=== PATIENT | male | born 1985 ===

== ENCOUNTER 2020-03-24 16:22 | Outpatient (REF) | payer OTHER, SELFPAY ==
[2020-03-24 17:25] LABS: Alanine Aminotransferase 16 U/L (0-40); Albumin Level 4.9 g/dL (3.5-5.0); Alkaline Phosphatase 79 U/L (39-117); Anion Gap 15 (12-20); Aspartate Amino Transferase 25 U/L (5-37); Bilirubin Direct 0.5 mg/dL (0.0-0.5); Bilirubin Total 1.3 mg/dL (0.0-1.0); Blood Urea Nitrogen 12 mg/dL (9-16); Calcium 9.5 mg/dL (8.4-10.2); Carbon Dioxide 25 mmol/L (22-29); Chloride 103 mmol/L (96-108); Estimated Glomerular Filt Rate > 60; Glucose Random 96 mg/dL (60-115); Potassium 4.1 mmol/l (3.3-5.1); Sodium 139 mmol/L (135-145); Total Protein 7.7 g/dL (6.5-8.0)
[2020-03-24 18:03] LABS: Erythrocyte Sedimentation Rate 1 MM/HR (0-15)
== END 2020-03-24 16:23 | disposition home or self-care (01) ==
LOC: HO.LAB 16:22
PROVIDERS: PCP Internal Medicine; Visit Provider Psychiatry & Neurology Neurology
DX: R42 Dizziness and giddiness (principal)
CPT/HCPCS: 36415; 80048; 80076; 85652

== ENCOUNTER 2021-03-29 07:51 | Outpatient (REF) | payer OTHER, SELFPAY ==
[2021-03-29 09:07] LABS: Binax Internal Control QC Valid; Binax Now Covid-19 Ag Negative (Negative)
== END 2021-03-29 07:52 | disposition home or self-care (01) ==
LOC: HO.LAB 07:51
PROVIDERS: Visit Provider Internal Medicine
DX: Z20.822 Contact with and (suspected) exposure to COVID-19 (principal)
CPT/HCPCS: C9803

== ENCOUNTER 2021-05-17 10:31 | Emergency (ER) | payer OTHER, SELFPAY ==
--- NOTE | 2021-05-17 | ECG_ITS ---
Test Reason : CHEST PAIN Blood Pressure : / mmHG Vent. Rate : 076 BPM Atrial Rate : 076 BPM P-R Int : 156 ms QRS Dur : 086 ms QT Int : 360 ms P-R-T Axes : 054 038 014 degrees QTc Int : 405 ms Normal sinus rhythm Normal ECG When compared with ECG of 03-AUG-2016 13:06, No significant change was found Referred By: Kamila Anguiano Electronically Signed By:[place]
--- NOTE | ~2021-05-17 | XR_ITS ---
EXAMINATION: XR CHEST CLINICAL INFORMATION: Chest pain COMPARISON: Previous chest x-ray April 2017 TECHNIQUE: Frontal view of the chest was obtained. FINDINGS: The cardiac and mediastinal contours are normal. The lungs are clear. There is no pleural effusion or pneumothorax. There may be old trauma to the right anterior fifth and sixth ribs. No acute bone abnormality. XR/XR chest 1V IMPRESSION: No evidence for acute disease in the chest.
--- NOTE | 2021-05-17 10:38 | ED_ITS ---
HPI - Psych General Chief Complaint: Chest Pain Stated Complaint: SI,SECTION 12 PER EMS Time Seen by Provider: 05/17/21 10:37 Source: patient Mode of arrival: EMS Limitations: no limitations Related Data Allergies Allergy/AdvReac Type Severity Reaction Status Date / Time bee pollen [BEE STINGS] Allergy Unknown SWELLING Unverified 12/04/19 15:34 PMF Past Medical History Medical History (Updated 05/17/21 @ 10:41 by Adina Kincaid) No known health problems Social History Social History Use of substances other than those prescribed or required for medical reasons: Yes Substance Use Type: Marijuana Substance Use Frequency: Daily Physical Exam Vital Signs: Vital Signs: Last Vital Signs Temp 98.4 F 05/17/21 10:39 Pulse 73 05/17/21 10:39 Resp 16 05/17/21 10:39 BP 123/78 05/17/21 10:39 Pulse Ox 97 05/17/21 10:39 BMI result Body Mass Index 30.9 MDM - Psych ECG Data Attestation: I personally reviewed and interpreted this ECG as follows: ECG interpretation date: 05/17/21 ECG interpretation time: 10:51 Interpretation: Rate: 76 Rhythm: NSR [place]: normal Normal P waves. Normal HELEN. Normal QRS complex. ST T wave : artifact noted no HOWARD but artifact sen qTC: normal prior studies: no acute ischemia The study has been interpreted contemporaneously by me. .
[2021-05-17 10:39] VITALS: BP 123/78; PULSE 73; RESP 16; TEMP 36.9; O2SAT 97; BMI 30.9
[2021-05-17 10:51] VITALS: BP 123/78; PULSE 73; RESP 16; O2SAT 97
--- NOTE | 2021-05-17 10:57 | ED.CHESTPAIN ---
HPI - Chest Pain General Chief Complaint: Chest Pain Stated Complaint: SI,SECTION 12 PER EMS Time Seen by Provider: 05/17/21 10:37 Source: patient Mode of arrival: EMS Limitations: no limitations History of Present Illness MD complaint: chest pain Onset (ago): day(s) (today around ) Timing of current episode: constant Prior episodes: Yes Onset: other (smoking THC) Pain location: left chest and right chest Pain radiation: none Severity: moderate Quality: aching Relieving factors: nothing Exacerbating factors: other (coughing) Context: other (started after smoking his usual THC this AM around ) Associated symptoms: cough Treatment prior to arrival: aspirin and other (also used his pump this AM ) Related Data Previous Rx's Medication Instructions Recorded cyclobenzaprine 10 mg tablet 10 mg PO TID PRN #14 tab 05/17/21 Allergies Allergy/AdvReac Type Severity Reaction Status Date / Time bee pollen [BEE STINGS] Allergy Unknown SWELLING Unverified 12/04/19 15:34 Review of Systems Review of Systems: Constitutional : No Weight loss, No Fever, No Chills ENT/Mouth : No sore throat, No Rhinorrhea Eyes: No Eye Pain, No Swelling Cardiovascular : pos Chest Pain, no SOB, no Dyspnea on Exertion, No Orthopnea, No Edema, No Palpitations Respiratory : pos Cough, No Sputum Gastrointestinal : no Nausea, No Vomiting, No Diarrhea, No abdominal Pain, No Hematochezia, No Melena Genitourinary : No Dysuria, No Urinary Frequency Musculoskeletal : No joint pain, No Myalgias, No Joint Swelling Skin : No Skin Lesions, No rash Neuro : No Weakness, No Numbness, No Dizziness, No Headache Psych : No Anxiety/Panic, No Depression Heme/Lymph: No Bruising, No Lymphadenopathy Endocrine : No Polyuria, No Polydipsia All other systems reviewed and are negative PMFSH Past Medical History Attestation statement: The following information was validated with the patient. Medical History Asthma Social History Social History Use of substances other than those prescribed or required for medical reasons: Yes Substance Use Type: Marijuana Substance Use Frequency: Daily Advance Directives: No Advance Directives Information Provided: No Physical Exam Vital Signs: Vital Signs: Last Vital Signs Temp 98.4 F 05/17/21 10:39 Pulse 83 05/17/21 11:18 Resp 16 05/17/21 11:18 BP 123/78 05/17/21 10:51 Pulse Ox 97 05/17/21 10:51 BMI result Body Mass Index 30.9 Appearance: Alert. Oriented X3. No acute distress. Eyes: Pupils equal, round and reactive to light. ENT: Pharynx normal. Neck: Normal inspection. Neck supple. CVS: Normal heart rate and rhythm. Pulses normal. Respiratory: No respiratory distress. Breath sounds slight wheeze R lung but otherwise clear Abdomen: Soft and non-tender. Skin: Skin warm and dry. Normal skin color. Normal skin turgor. Extremities: No lower extremity edema. No calf ttp Neuro: Oriented X 3. No motor deficit. No sensory deficit. Course Course Course Narrative: nonischemic EKG trop negative at 5 hr lexa no ACS risk factors at this time can be DC feels better MDM - Chest Pain MDM Narrative Medical decision making narrative: 36 yo male with hx of asthma has pump at home, smokes THC daily here with c/o chest pain and cough since smoking this AM - states it's the same weed he's been using all week. At this time no hypoxia/tachycardia/signs of DVT to suggest PE, atypical for ACS could just be irritation from the THC will obtain labs, troponin x 1 (at 5 hr lexa) EKG, CXR. Lab Data Result diagrams: 05/17/21 11:03 05/17/21 11:03 Labs: Lab Results 05/17/21 05/17/21 05/17/21 Range/Units 11:03 11:03 11:03 WBC 6.2 (4.8-10.8) X10*3/uL RBC 4.92 (4.60-5.80) X10*6/uL Hgb 15.3 (14.0-18.0) g/dl Hct 44.3 (42.0-52.0) % MCV 90.0 (80.0-98.0) fL MCH 31.1 (27.0-33.0) pg MCHC 34.5 (31.0-36.0) g/dl RDW 11.8 (11.0-16.0) % Plt Count 187 (160-400) X10*3/uL MPV 11.3 (9.4-12.4) fL Immature Gran % (Auto) 0.2 (0.0-0.4) % Neut % (Auto) 58.6 (45-73) % Lymph % (Auto) 31.0 (20-40) % [place] % (Auto) 8.6 (2-11) % Eos % (Auto) 1.1 (0-4) % Baso % (Auto) 0.5 (0-2) % Lymph # (Auto) 1.9 (1.2-4.9) X10*3/uL [place] # (Auto) 0.5 (0.1-1.2) X10*3/uL Eos # (Auto) 0.1 (0.0-0.4) X10*3/uL Baso # (Auto) 0.0 (0.0-0.2) X10*3/uL Abs Immat Gran (auto) 0.01 (0.00-0.03) X10*3/uL Absolute Neuts (auto) 3.6 (2.0-8.3) x10*3/uL Absolute Nucleated RBC 0.000 (0.0-0.012) X10*3/uL Nucleated RBC % (auto) 0.0 (0.0-0.2) /100WBC Sodium 136 (135-145) mmol/L Potassium 4.2 (3.3-5.1) mmol/L Chloride 104 (96-108) mmol/L Carbon Dioxide 26 (22-29) mmol/L Anion Gap 10 L (12-20) BUN 10 (9-16) mg/dL Creatinine 0.85 (0.5-1.4) mg/dL Estim Creat Clear Calc 116.9 Estimated GFR > 60 Random Glucose 91 (60-115) mg/dL Calcium 9.5 (8.4-10.2) mg/dL Troponin I High Sens < 3.5 (<3.5-35.0) ng/L COVID-19 (BENNETT) (Negative) COVID-19 Clin Com 05/17/21 Range/Units 11:03 WBC (4.8-10.8) X10*3/uL RBC (4.60-5.80) X10*6/uL Hgb (14.0-18.0) g/dl Hct (42.0-52.0) % MCV (80.0-98.0) fL MCH (27.0-33.0) pg MCHC (31.0-36.0) g/dl RDW (11.0-16.0) % Plt Count (160-400) X10*3/uL MPV (9.4-12.4) fL Immature Gran % (Auto) (0.0-0.4) % Neut % (Auto) (45-73) % Lymph % (Auto) (20-40) % [place] % (Auto) (2-11) % Eos % (Auto) (0-4) % Baso % (Auto) (0-2) % Lymph # (Auto) (1.2-4.9) X10*3/uL [place] # (Auto) (0.1-1.2) X10*3/uL Eos # (Auto) (0.0-0.4) X10*3/uL Baso # (Auto) (0.0-0.2) X10*3/uL Abs Immat Gran (auto) (0.00-0.03) X10*3/uL Absolute Neuts (auto) (2.0-8.3) x10*3/uL Absolute Nucleated RBC (0.0-0.012) X10*3/uL Nucleated RBC % (auto) (0.0-0.2) /100WBC Sodium (135-145) mmol/L Potassium (3.3-5.1) mmol/L Chloride (96-108) mmol/L Carbon Dioxide (22-29) mmol/L Anion Gap (12-20) BUN (9-16) mg/dL Creatinine (0.5-1.4) mg/dL Estim Creat Clear Calc Estimated GFR Random Glucose (60-115) mg/dL Calcium (8.4-10.2) mg/dL Troponin I High Sens (<3.5-35.0) ng/L COVID-19 ([facility]ENNETT) Negative (Negative) COVID-19 Clin Com See Note ECG Data ECG #1: Attestation: I personally reviewed and interpreted this ECG as follows: ECG interpretation date: 05/17/21 ECG interpretation time: 11:04 Interpretation: Rate: 76 Rhythm: NSR [place]: normal Normal P waves. Normal HELEN. Normal QRS complex. ST T wave : artifact noted, no HOWARD qTC: normal prior studies: no sig change from priors The study has been interpreted contemporaneously by me. . Discharge Plan Discharge Clinical Impression: Atypical chest pain Patient Disposition: Home, Self-Care Instructions: Chest Pain (ED) Additional Instructions: return to ED for any worsening symptoms or concerns COVID negative Prescriptions: New cyclobenzaprine 10 mg tablet 10 mg PO TID PRN (Reason: muscle spasm) Qty: 14 0RF Stand Alone Forms: Work/School Release
[2021-05-17 11:07] LABS: MANUAL DIFF FLAG NO
[2021-05-17 11:10] LABS: Basophils Percent Auto 0.5 % (0-2); Eosinophils Absolute Auto 0.1 X10*3/uL (0.0-0.4); Eosinophils Percent Auto 1.1 % (0-4); Hematocrit 44.3 % (42.0-52.0); Hemoglobin 15.3 g/dl (14.0-18.0); Imm Gran Abs Auto 0.01 X10*3/uL (0.00-0.03); Imm Gran Pct Auto 0.2 % (0.0-0.4); Lymphocytes Absolute Auto 1.9 X10*3/uL (1.2-4.9); Mean Corpuscular HGB Conc 34.5 g/dl (31.0-36.0); Mean Corpuscular Hemoglobin 31.1 pg (27.0-33.0); Mean Platelet Volume 11.3 fL (9.4-12.4); Monocytes Absolute Auto 0.5 X10*3/uL (0.1-1.2); Monocytes Percent Auto 8.6 % (2-11); Neutrophils Absolute Auto 3.6 x10*3/uL (2.0-8.3); Neutrophils Percent Auto 58.6 % (45-73); Platelet Count 187 X10*3/uL (160-400); Red Blood Count 4.92 X10*6/uL (4.60-5.80); Red Cell Distribution Width 11.8 % (11.0-16.0); White Blood Count 6.2 X10*3/uL (4.8-10.8)
[2021-05-17 11:18] VITALS: PULSE 83; RESP 16; O2SAT 97
[2021-05-17] MEDS: Albuterol Sulfate (0.083%) 2.5 MG/3 ML VIAL.NEB INHALE (11:18)
[2021-05-17 11:21] LABS: Anion Gap 10 (12-20); Blood Urea Nitrogen 10 mg/dL (9-16); Calcium 9.5 mg/dL (8.4-10.2); Carbon Dioxide 26 mmol/L (22-29); Chloride 104 mmol/L (96-108); Creatinine Clr Calc Pharmacy 116.9; Estimated Glomerular Filt Rate > 60; Glucose Random 91 mg/dL (60-115); Potassium 4.2 mmol/L (3.3-5.1); Sodium 136 mmol/L (135-145)
[2021-05-17 11:28] LABS: Troponin-I High Sensitivity < 3.5 ng/L (<3.5-35.0)
[2021-05-17 11:31] LABS: COVID-19 Test Negative (Negative); IDNOW Serial# 16C4AD1C
== END 2021-05-17 12:14 | disposition home or self-care (01) ==
PROVIDERS: Emergency Provider Emergency Medicine
DX: R07.89 Other chest pain (principal); F12.90 Cannabis use, unspecified, uncomplicated; R05.9 Cough, unspecified; Z20.822 Contact with and (suspected) exposure to COVID-19; Z79.899 Other long term (current) drug therapy
CPT/HCPCS: 71045; 80048; 84484; 85025; 87635; 93005; 94640; 99284

== ENCOUNTER 2023-12-23 08:33 | Emergency (ER) | payer OTHER, SELFPAY ==
--- NOTE | ~2023-12-23 | CT_ITS ---
EXAMINATION: CT HEAD WITHOUT CONTRAST CLINICAL INFORMATION: Elevated blood pressure COMPARISON: Head CT September 12, 2018 TECHNIQUE: Contiguous axial imaging was performed from the skull base to vertex without intravenous administration of contrast. This CT examination was performed using dose optimization techniques as appropriate, variously including the following: *Automated exposure control *Adjustment of mA and/or kV according to patient size (this includes techniques or standardized protocols for targeted exams where dose is matched to indication/reason for exam; i.e. extremities or head) *Use of iterative reconstruction technique DLP: 696 mGy-cm FINDINGS: There is no evidence of acute intracranial hemorrhage or territorial infarction. No abnormal mass effect or midline shift is appreciated. Curry-white differentiation is well preserved. No extra-axial fluid collections. The ventricular system and cortical sulci are normal in size. The osseous structures and soft tissues are normal. The visualized paranasal sinuses and mastoid air cells are well aerated. CT/CT head/brain wo IV con IMPRESSION: No CT evidence of acute intracranial abnormality. Electronically signed by: Adolph Kate MD 12/23/2023 09:31 AM EDT
[2023-12-23 08:35] VITALS: BP 169/112; PULSE 120; RESP 20; TEMP 36.2; O2SAT 97; BMI 31.4
--- NOTE | 2023-12-23 08:44 | ECG_ITS ---
Test Reason : HYPERTENSION Blood Pressure : / mmHG Vent. Rate : 112 BPM Atrial Rate : 112 BPM P-R Int : 140 ms QRS Dur : 092 ms QT Int : 336 ms P-R-T Axes : 060 040 037 degrees QTc Int : 458 ms Sinus tachycardia Otherwise normal ECG When compared with ECG of 17-MAY-2021 10:41, Heart rate has increased Referred By: Generic ED Physician Electronically Signed By:DIONTE VALENCIA
[2023-12-23 08:50] VITALS: BP 140/96; PULSE 117; RESP 20; TEMP 36.7; O2SAT 95
[2023-12-23 09:03] LABS: MANUAL DIFF FLAG NO
--- NOTE | 2023-12-23 09:04 | ED.GENADULT ---
HPI - General Adult General Chief complaint: Recheck/Abnormal Lab/Rx Stated complaint: High blood pressure/High pulse Time Seen by Provider: 12/23/23 08:52 Source: patient and family ( significant other) Mode of arrival: ambulatory Limitations: no limitations History of Present Illness ED Provider: DR. Pandey HPI narrative: this is a 38-year-old gentleman came in with his significant other for evaluation of palpitation, hot flashes, on an of sweating, nausea, vomiting and overall feels fatigued. Patient noticed that his blood pressure is running high using home blood pressure monitoring machine for about a month. Patient do not have history of an official high blood pressure not taking medicine for. Patient used to work in the [employer] business now his home, patient drinks daily heavy liquor admit that he gets drunk every night to help sleep, patient also smokes marijuana but no history of tobacco use. No chest pain, no blurry vision, no abdominal pain, drinks plenty of fluid as per his report. No dysuria, no frequency urination, no hematuria. Related Data Previous Rx's ?Medication ?Instructions ?Recorded cyclobenzaprine 10 mg tablet 10 mg PO TID PRN muscle spasm #14 05/17/21 tabs hydrochlorothiazide 12.5 mg tablet 12.5 mg PO DAILY #30 tabs 12/23/23 Allergies Allergy/AdvReac Type Severity Reaction Status Date / Time bee pollen [BEE STINGS] Allergy Unknown SWELLING Verified 12/23/23 08:39 Review of Systems Review of Systems: All other systems are reviewed and are negative Constitutional: Reports as per HPI and Reports no additional constitutional complaints Eyes: Reports as per HPI and Reports no additional eye complaints Reports system reviewed and no additional complaints, except as documented Cardiovascular: Reports as per HPI and Reports no additional cardiovascular complaints Respiratory: Reports as per HPI and Reports no additional respiratory complaints Gastrointestinal: Reports as per HPI and Reports no additional gastrointestinal complaints Genitourinary: Reports no additional female genitourinary complaints Musculoskeletal: Reports no additional musculoskeletal complaints Skin/Breast: Reports system reviewed and no additional complaints, except as docu Psychiatric: Reports no additional psychiatric complaints Endocrine: Reports no additional endocrine complaints Hematologic/Lymphatic: Reports no additional hematologic/lymphatic complaints Allergic/Immunologic: Reports no additional allergic/immunologic complaints Reports system reviewed and no additional complaints, except as documented and Reports Abnormal speech present [facility] Past Medical History Medical History Asthma Social History Social History Substance Use Type: Marijuana Advance Directives: No Advance Directives Information Provided: No Physical Exam ED Vital Signs: Vital Signs - 24 hr 12/23/23 08:35 12/23/23 08:50 12/23/23 10:09 Temperature 97.2 F 98.0 F 98.4 F Pulse Rate 120 H 117 H 92 Respiratory Rate 20 20 24 H Blood Pressure 169/112 H 140/96 H 139/91 H Pulse Oximetry 97 95 98 Oxygen Delivery Method Room Air Room Air Room Air 12/23/23 10:58 Temperature Pulse Rate Respiratory Rate Blood Pressure 152/85 H Pulse Oximetry Oxygen Delivery Method BMI result Body Mass Index 31.4 Vital signs have been reviewed and appear to be correct. Blood pressure elevated. Heart rate normal. Respiratory rate normal. Temperature normal. Oxygen saturation normal. Appearance: Alert. Oriented X3. No acute distress. Head: Normal external exam. Normocephalic. Atraumatic. No Alberto signs noted. No raccoon eyes noted Eyes: PERRLA. EOMI. Conjunctiva and sclera normal. Eyelids normal. ENT: TM's Normal. Pharynx normal. Uvula midline. Moist mucous membranes. No trismus noted. No drooling noted. No muffled voice noted. Neck: Normal inspection. Neck supple. FROM. No adenopathy. Thyroid Normal. No meningeal signs. No neck mass noted. CVS: Normal heart rate and rhythm. Heart sound normal. No murmurs noted. Pulses normal throughout. Respiratory: No respiratory distress. Painless inspiration. Breath sounds normal. No wheezes/rales/rhonchi noted. Chest nontender. No accessory muscle usage noted or decreased air movement noted. Abdomen: Soft and nontender. Bowel sounds normal in all 4 quadrants. No distention noted. No organomegaly noted. No visible injury noted. Back: No CVA tenderness. Full range of motion noted. Skin: Skin warm and dry. Normal skin color. Normal skin turgor. No rashes/lesions/lacerations noted. Extremities: No lower extremity edema. Extremities exhibit normal range of motion. Extremities nontender. Neuro: Oriented X 3. Cranial nerve exam: II-XII are grossly intact No motor deficit. No sensory deficit. Reflexes normal. Course Reevaluation(s) Reevaluation #1: essential hypertension with palpitation. Patient took his blood pressure reading on multiple setting and persist to be high as per patient history, patient had palpitation this morning that completely resolved now and thought to be secondary to anxiety. Negative head CT for intracranial bleed, no indication for end-organ damage from hypertension. Patient will follow-up with his PCP in 1 month, will start the patient on hydrochlorothiazide 12.5 mg p.o. daily and follow-up with PCP Time: 11:33 Medications Administered Discontinued Medications Generic Name Dose Route Start Last Admin Trade Name Freq PRN Reason Stop Dose Admin Hydrochlorothiazide 12.5 mg 12/23/23 10:33 12/23/23 10:58 Hydrochlorothiazide 12.5 Mg Tablet PO 12/23/23 10:34 12.5 mg ONCE ONE Administration Protocol Sodium Chloride 1,000 mls @ 999 mls/hr 12/23/23 09:08 12/23/23 10:58 Ns IV 12/23/23 10:08 Infused .Q1H1M ONE Infusion Medical Decision Making Differential Diagnosis Differential Diagnoses: The differential diagnosis associated with the presentation includes ( essential hypertension, hypertensive urgency, hypertensive emergency, electrolyte derangement, severe anemia.) Admission/Observation Consideration of admission/observation: Escalation of care including admission/observation considered Lab Data MDM Lab Attestation statement: I reviewed the patient's lab results. 12/23/23 08:57 12/23/23 08:57 Labs: Lab Results 12/23/23 12/23/23 Range/Units 08:57 09:06 WBC 5.0 (4.8-10.8) X10*3/uL RBC 5.06 (4.60-5.80) X10*6/uL Hgb 16.6 (14.0-18.0) g/dl Hct 46.2 (42.0-52.0) % MCV 91.3 (80.0-98.0) fL MCH 32.8 (27.0-33.0) pg MCHC 35.9 (31.0-36.0) g/dl RDW 12.5 (11.0-16.0) % Plt Count 180 (160-400) X10*3/uL MPV 10.4 (9.4-12.4) fL Immature Gran % (Auto) 0.2 (0.0-0.4) % Neut % (Auto) 70.8 (45-73) % Lymph % (Auto) 17.7 L (20-40) % [place] % (Auto) 9.7 (2-11) % Eos % (Auto) 0.8 (0-4) % Baso % (Auto) 0.8 (0-2) % Lymph # (Auto) 0.9 L (1.2-4.9) X10*3/uL [place] # (Auto) 0.5 (0.1-1.2) X10*3/uL Eos # (Auto) 0.0 (0.0-0.4) X10*3/uL Baso # (Auto) 0.0 (0.0-0.2) X10*3/uL Abs Immat Gran (auto) 0.01 (0.00-0.03) X10*3/uL Absolute Neuts (auto) 3.6 (2.0-8.3) x10*3/uL Absolute Nucleated RBC 0.000 (0.0-0.012) X10*3/uL Nucleated RBC % (auto) 0.0 (0.0-0.2) /100WBC Sodium 138 (135-145) mmol/L Potassium 3.5 (3.3-5.1) mmol/L Chloride 104 (96-108) mmol/L Carbon Dioxide 22 (22-29) mmol/L Anion Gap 16 (12-20) BUN 10 (9-16) mg/dL Creatinine 0.93 (0.5-1.4) mg/dL Estim Creat Clear Calc 101.9 Estimated GFR > 60 Random Glucose 99 (60-115) mg/dL Calcium 9.1 (8.4-10.2) mg/dL Magnesium 2.0 (1.6-2.6) mg/dL Total Bilirubin 1.4 H (0.0-1.0) mg/dL AST 58 H (5-37) U/L ALT 34 (0-40) U/L Alkaline Phosphatase 90 (39-117) U/L Troponin I High Sens < 2.7 (<3.5-35.0) ng/L Total Protein 8.1 H (6.5-8.0) g/dL Albumin 4.9 (3.5-5.0) g/dL Independent Interpretation I performed an independent interpretation of an: CT Scan ( head:No CT evidence of acute intracranial abnormality.) Radiology Impression Discussion of test interpretation with radiology: I have reviewed the radiologist's reading. Discharge Plan Discharge Clinical Impression: Essential hypertension Patient Disposition: Home, Self-Care Instructions: Hypertension (ED) Additional Instructions: to help better manage your blood pressure need to quit smoking, change in lifestyle become more active, start walking around the block for 15 minutes and go up to 30 minutes a day, eat healthy food vegetable and fruit, stay away from greasy food. Prescriptions: New hydrochlorothiazide 12.5 mg tablet 12.5 mg PO DAILY Qty: 30 0RF No Action cyclobenzaprine 10 mg tablet 10 mg PO TID PRN (Reason: muscle spasm) Qty: 14 0RF Referrals: Raj Max MD [Primary Care Provider] - Print Language: Greenlandic
[2023-12-23 09:08] LABS: Basophils Percent Auto 0.8 % (0-2); Eosinophils Percent Auto 0.8 % (0-4); Hematocrit 46.2 % (42.0-52.0); Hemoglobin 16.6 g/dl (14.0-18.0); Imm Gran Abs Auto 0.01 X10*3/uL (0.00-0.03); Imm Gran Pct Auto 0.2 % (0.0-0.4); Lymphocytes Absolute Auto 0.9 X10*3/uL (1.2-4.9); Lymphocytes Percent Auto 17.7 % (20-40); Mean Corpuscular HGB Conc 35.9 g/dl (31.0-36.0); Mean Corpuscular Hemoglobin 32.8 pg (27.0-33.0); Mean Corpuscular Volume 91.3 fL (80.0-98.0); Mean Platelet Volume 10.4 fL (9.4-12.4); Monocytes Absolute Auto 0.5 X10*3/uL (0.1-1.2); Monocytes Percent Auto 9.7 % (2-11); Neutrophils Absolute Auto 3.6 x10*3/uL (2.0-8.3); Neutrophils Percent Auto 70.8 % (45-73); Platelet Count 180 X10*3/uL (160-400); Red Blood Count 5.06 X10*6/uL (4.60-5.80); Red Cell Distribution Width 12.5 % (11.0-16.0)
[2023-12-23 09:18] LABS: Alanine Aminotransferase 34 U/L (0-40); Albumin Level 4.9 g/dL (3.5-5.0); Alkaline Phosphatase 90 U/L (39-117); Anion Gap 16 (12-20); Aspartate Amino Transferase 58 U/L (5-37); Bilirubin Total 1.4 mg/dL (0.0-1.0); Blood Urea Nitrogen 10 mg/dL (9-16); Calcium 9.1 mg/dL (8.4-10.2); Carbon Dioxide 22 mmol/L (22-29); Chloride 104 mmol/L (96-108); Creatinine Clr Calc Pharmacy 101.9; Estimated Glomerular Filt Rate > 60; Glucose Random 99 mg/dL (60-115); Potassium 3.5 mmol/L (3.3-5.1); Sodium 138 mmol/L (135-145); Total Protein 8.1 g/dL (6.5-8.0)
[2023-12-23] MEDS: 0.9 % Sodium Chloride 1,000 ML 999 ML IV (09:32)
[2023-12-23 09:34] LABS: Troponin-I High Sensitivity < 2.7 ng/L (<3.5-35.0)
[2023-12-23 10:09] VITALS: BP 139/91; PULSE 92; RESP 24; TEMP 36.9; O2SAT 98
[2023-12-23 10:58] VITALS: BP 152/85
[2023-12-23] MEDS: hydroCHLOROthiazide 12.5 MG TABLET PO (10:58)
--- NOTE | 2023-12-23 11:35 | PC.NURSE ---
Pt comes from home for increased BP/nausea starting last night. Pt states he has had increased nausea/loss of appetite/ hot flashes/ palpitations. Denies cp. Pt sinus tach on monitor technician, 110s-120s. Since arrival to room, pt BP decreased from 169/112 in triage to 152/85. Pt states he starts to get a hot flash and notices his BP increases. A/ox4, no c/o dizziness/lightheadedness, endorses a headache, lung sounds cta bilaterally, no increased wob/sob noted, s1 and s2 heard, pt sinus tach on monitor technician, HR 110s-120s, no c/o chest pain at this time, abdomen soft, non-tender. 18g IV placed in left AC, pt medicated per MAY, 1L NS infused. Significant other at bedside, call boyd within reach, all needs met at this time.
--- NOTE | 2023-12-23 11:53 | PC.NURSE ---
Pt d/c vitals showed HTN, 175/109. MD Pandey made aware of pt high BP, okay with d/c.
[2023-12-23 11:54] VITALS: BP 168/110; PULSE 95; RESP 18; TEMP 36.8; O2SAT 98
== END 2023-12-23 11:55 | disposition home or self-care (01) ==
PROVIDERS: Emergency Provider Emergency Medicine; PCP Family Medicine
DX: R11.2 Nausea with vomiting, unspecified (principal); I10 Essential (primary) hypertension; R00.0 Tachycardia, unspecified; F12.90 Cannabis use, unspecified, uncomplicated; Z79.899 Other long term (current) drug therapy
CPT/HCPCS: 36415; 70450; 80053; 83735; 84484; 85025; 93005; 96360; 99284; 99285